=== PATIENT | female | born 1955 | race Hispanic/Latino ===

== ENCOUNTER 2017-06-30 10:47 | Outpatient (CLI) | payer OTHER ==
--- NOTE | 2017-06-30 16:34 | Mammography Report ---
BILATERAL DIGITAL SCREENING MAMMOGRAM with CAD : 06/30/17 10:47:00 CLINICAL: Routine screening.A previous left benign breast biopsy. COMPARISON:05/07/16 FINDINGS: The breasts are heterogeneously dense, which may obscure small masses.A few bilateral benign calcifications. No mass, architectural distortion or suspicious calcifications. IMPRESSION: No mammographic evidence of malignancy. BI-RADS CATEGORY: 2 -- Benign RECOMMENDATION: Routine mammographic screening in one year.
== END 2017-06-30 10:48 | disposition home or self-care (01) ==
LOC: SPVWC 10:47
PROVIDERS: ATTEND Family Medicine
DX: Z12.31 Encounter for screening mammogram for malignant neoplasm of breast (principal)
CPT/HCPCS: 77067; G0202

== ENCOUNTER 2018-10-11 08:34 | Outpatient (CLI) | payer OTHER ==
--- NOTE | 2018-10-11 10:16 | Mammography Report ---
BONE DEXA:10/11/18 08:34:00 CLINICAL: Postmenopausal. COMPARISON: 05/07/16 TECHNIQUE: Two site bone DEXA performed on an Hologic scanner. FINDINGS: The average BMD of the lumbar spine L1-L4 is 0.614g/cm squared with a T-score of -3.9 and a Z-score of -2.3. This compares to 0.665g/cm squared on the last exam and represents a -7.8% change from the previous baseline. The average BMD of the left hip is 0.793g/cm squared with a T-score of -1.2 and a Z-score of -0.1. This compares to 0.842g/cm squared on the last exam and represents a -5.8% change from the previous baseline. The left femoral neck BMD is 0.589g/cm squared with a T score of -2.3 and a Z score of -0.9. IMPRESSION: 1. WHO classification: Osteoporosis with high fracture risk based on spine measurements and a significant decline in BMD compared to the previous exam. 2. WHO classification: Osteopenia with increased fracture risk based on left femoral neck measurements and a significant decline in left hip BMD compared to the previous exam. RECOMMENDATION: Clinical correlation and routine screening. DEFINITIONS: BMD = Bone Mineral Density T-score = BMD related to mean peak bone mass of young adult (mean expressed in Standard Deviation) Z-score = Age matched BMD expressed in SD World Health Organization (WHO) Diagnostic Criteria Normal T-score > -1 SD Osteopenia T-score between -1 and -2.4 SD Osteoporosis T-score -2.5 SD or below NOTE: BMD is not the only risk factor for fracture; also consider factors such as the patient's age, risk of falling, previous osteoporotic fracture, family history of osteoporotic fractures, current smoker, and low body weight. Z-scores are not calculated if >80 years of age.
--- NOTE | 2018-10-11 10:41 | Mammography Report ---
BILATERAL DIGITAL SCREENING MAMMOGRAM with CAD : 10/11/18 08:34:00 CLINICAL: Routine screening.Previous left benign surgical biopsy. COMPARISON:06/30/17 FINDINGS: The breasts are heterogeneously dense, which may obscure small masses.Left upper inner postsurgical benign scar is less dense than on previous exams.. No mass, suspicious architectural distortion or suspicious calcifications. IMPRESSION: No mammographic evidence of malignancy. BI-RADS CATEGORY: 2 -- Benign RECOMMENDATION: Routine mammographic screening in one year. COMMENT: Patient follow-up letters are generated by our [employer] application.
== END 2018-10-11 08:35 | disposition home or self-care (01) ==
LOC: SPVWC 08:34
PROVIDERS: ATTEND Family Medicine
DX: Z12.31 Encounter for screening mammogram for malignant neoplasm of breast (principal); Z13.820 Encounter for screening for osteoporosis; M81.0 Age-related osteoporosis without current pathological fracture; M85.88 Other specified disorders of bone density and structure, other site; Z78.0 Asymptomatic menopausal state
CPT/HCPCS: 77067; 77080